=== PATIENT | female | born 1955 | race Caucasian/White ===

== ENCOUNTER 2016-07-03 08:41 | Observation (INO) | payer BC ==
[~2016-07-03] VITALS: Ht 162.6 cm; Wt 83.8 kg
[2016-07-03] MEDS ORDERED: HYDROXYCHLOR200 MG PO (09:01)
[2016-07-03 09:07] LABS: HEMATOCRIT 42.4 % (37.0-47.0); HEMOGLOBIN 14.3 g/dl (12.0-16.0); IMMATURE GRANULOCYTES 0.2 % (0.0-1.0); MEAN CELL VOLUME 90.8 fL CALC (80.0-100.0); MEAN CORPUSCULAR HGB 30.6 pG CALC (26.0-32.0); MEAN CORPUSCULAR HGB CONC 33.7 g/L CALC (32.0-36.0); NEUT# 5.92 thou/uL (2.00-7.15); RED BLOOD COUNT 4.67 mill/uL (4.20-5.60); RED CELL DISTRI WIDTH 12.5 % (11.5-15.5)
[2016-07-03 09:18] LABS: ALBUMIN 4.3 g/dL (3.2-5.0); ALKALINE PHOSPHATASE 105 u/l (38-126); ANION GAP 15 (6-22 (CALC)); BILIRUBIN, TOTAL 0.7 mg/dL (0.0-1.4); BUN 20 mg/dL (7-17); BUN/CREATININE RATIO 26 (12-20 (CALC)); CALCIUM 9.8 mg/dL (8.4-10.2); CARBON DIOXIDE 29 mmol/l (22-30); CHLORIDE 102 mmol/l (95-108); CREATININE 0.7 mg/dL (0.5-1.0); GFR > 60 ML/MIN (>=60 (CALC)); GFR FOR AFR.AMER. > 60 ML/MIN (>=60 (CALC)); GLUCOSE 98 mg/dL (65-105); POTASSIUM 4.1 mmol/l (3.5-5.1); SGOT/AST 89 u/l (14-36); SGPT/ALT 58 u/l (9-52); SODIUM 142 mmol/l (137-146); TOTAL PROTEIN 7.4 g/dL (6.3-8.2)
[2016-07-03 09:30] LABS: MYOGLOBIN 23 ng/mL (0 - 62)
[2016-07-03 13:08] VITALS: BP 166/74
[2016-07-03 16:00] VITALS: BP 130/68
[2016-07-03] MEDS ORDERED: AMLODIPINE BESYL5 MG PO (19:13)
== END 2016-07-03 19:50 | disposition home or self-care (01) | DRG 313 ==
LOC: ENPENDDIS → ED 08:41 → ED-I 10:20 → ED 12:26 → MS2 12:27
PROVIDERS: Emergency Medicine; ADMIT Internal Medicine; ATTEND Internal Medicine
DX: R07.2 Precordial pain (principal); I10 Essential (primary) hypertension; M06.9 Rheumatoid arthritis, unspecified; I34.1 Nonrheumatic mitral (valve) prolapse; Z79.899 Other long term (current) drug therapy
CPT/HCPCS: G0378

== ENCOUNTER 2016-10-09 08:29 | Day surgery (SDC) | payer BC ==
[~2016-10-09] VITALS: Ht 162.6 cm; Wt 81.6 kg
[~2016-10-09 08:29] MED LIST: AMLODIPINE BESYL5 MG PO; ASPIRIN81 MG PO; CALCIUM600 M1 PO; HYDROXYCHLOR200 MG PO; MAGNESIUM400 MG PO; MULTI VIT PO; SUPER B COM2 PO
[2016-10-09] MEDS ORDERED: PERCOCET 5/325M1 TAB PO (13:14)
[2016-10-09 14:33] VITALS: BP 122/59
== END 2016-10-09 14:55 | disposition home or self-care (01) | DRG 352 ==
LOC: ENDO 08:29 → ORM 08:29
PROVIDERS: ATTEND Surgery
PROC: 0YU50JZ Supplement Right Inguinal Region with Synthetic Substitute, Open Approach (ICD-10-PCS; principal; 2016-10-09)
PROC: 0DB68ZX Excision of Stomach, Via Natural or Artificial Opening Endoscopic, Diagnostic (ICD-10-PCS; 2016-10-09)
DX: K40.90 Unilateral inguinal hernia, without obstruction or gangrene, not specified as recurrent (principal); R13.10 Dysphagia, unspecified; I10 Essential (primary) hypertension; R10.13 Epigastric pain; K29.50 Unspecified chronic gastritis without bleeding; K80.20 Calculus of gallbladder without cholecystitis without obstruction
CPT/HCPCS: J2710

== ENCOUNTER 2019-12-22 14:11 | Emergency (ER) | payer BC ==
[~2019-12-22] VITALS: Ht 162.6 cm; Wt 89.0 kg
[~2019-12-22 14:11] MED LIST changes: +PERCOCET 5/325M1 TAB PO
[2019-12-22] MEDS ORDERED: NORVASC5 M1 PO (14:22)
[2019-12-22 14:37] LABS: HEMOGLOBIN 14.9 g/dl (12.0-16.0); IMMATURE GRANULOCYTES 0.3 % (0.0-5.0); MEAN CELL VOLUME 92.7 fL CALC (80.0-100.0); MEAN CORPUSCULAR HGB CONC 32.4 g/dL CAL (32.0-36.0); NEUT# 5.72 thou/uL (2.00-7.15); RED BLOOD COUNT 4.96 mill/uL (4.20-5.60); RED CELL DISTRI WIDTH 13.3 % (11.5-15.5)
[2019-12-22 14:42] LABS: ALBUMIN 4.5 g/dL (3.2-5.0); ALKALINE PHOSPHATASE 109 u/l (38-126); BILIRUBIN, TOTAL 0.8 mg/dL (0.0-1.4); BUN 17 mg/dL (8-23); BUN/CREATININE RATIO 27 (12-20 (CALC)); CHLORIDE 103 mmol/l (95-108); CREATININE 0.6 mg/dL (0.5-1.0); GFR > 60 ML/MIN (>=60 (CALC)); GFR FOR AFR.AMER. > 60 ML/MIN (>=60 (CALC)); SGOT/AST 37 u/l (9-36); TOTAL PROTEIN 7.9 g/dL (6.3-8.2)
[2019-12-22 14:51] LABS: ANION GAP 13 (6-22 (CALC)); CARBON DIOXIDE 22 mmol/l (22-30); SODIUM 134 mmol/l (137-146)
[2019-12-22 15:22] VITALS: BP 133/53
== END 2019-12-22 15:22 | disposition short-term general hospital (02) | DRG 311 ==
LOC: ED 14:11
PROVIDERS: Family Medicine
DX: I20.0 Unstable angina (principal); I10 Essential (primary) hypertension; I20.9 Angina pectoris, unspecified; R42 Dizziness and giddiness; R07.9 Chest pain, unspecified
CPT/HCPCS: A9502; J1644; J2785